=== PATIENT | female | born 1990 | race Caucasian/White ===

== ENCOUNTER → 2016-12-28 | Outpatient (CLI) | payer OTHER ==
[2016-12-28 18:46] LABS: BASO % 0.6 % (0.0-1.0); EOS # 0.1 K/mm3 (0.0-0.50); EOS % 1.5 % (0.0-3.0); LARGE UNSTAINED CELL # 0.1 K/mm3 (0.0-0.4); LARGE UNSTAINED CELL % 1.3 % (0.0-4.0); LYMPH # 2.2 K/mm3 (1.5-6.5); LYMPH % 28.9 % (24.0-44.0); MEAN CORPUSCULAR HGB CONC 34.3 g/dl (32.0-36.5); MEAN CORPUSCULAR VOLUME 93.4 fl (80.0-96.0); MONO # 0.4 K/mm3 (0.0-0.8); NEUTROPHILS # 4.6 K/mm3 (1.8-7.7); NEUTROPHILS % 61.8 % (36.0-66.0); PLATELET COUNT, AUTOMATED 248 k/mm3 (150-450); RED CELL DISTRIBUTION WIDTH 11.7 % (11.5-14.5); WHITE BLOOD COUNT 7.4 K/mm3 (4.0-10.0)
[2016-12-28 19:51] LABS: ERYTHROCYTE SEDIMENTATION RATE 4 mm/hr (0-20)
[2016-12-28 20:47] LABS: URIC ACID 3.7 MG/DL (2.6-6.0)
[2016-12-31 00:06] LABS: Lyme Disease IgG/IgM Antibodie <0.91 ISR (0.00-0.90); Lyme Disease IgM Ab Quantitati <0.80 index (0.00-0.79)
== END ==
LOC: M LAB 15:38
PROVIDERS: ATTEND Physician Assistant
DX: M25.462 Effusion, left knee (principal)

== ENCOUNTER → 2017-04-11 | Outpatient (CLI) | payer OTHER ==
[2017-04-11 17:58] LABS: ALBUMIN 4.2 GM/DL (3.2-5.2); ALBUMIN/GLOBULIN RATIO 1.35 (1.00-1.93); ALKALINE PHOSPHATASE 52 U/L (45-117); ALT/SGPT 18 U/L (12-78); ANION GAP 5 MEQ/L (8-16); AST/SGOT 14 U/L (15-37); BILIRUBIN,TOTAL 0.7 MG/DL (0.2-1.0); BLOOD UREA NITROGEN 10 MG/DL (7-18); CALCIUM LEVEL 9.1 MG/DL (8.5-10.1); CARBON DIOXIDE LEVEL 30 MEQ/L (21-32); CHLORIDE LEVEL 105 MEQ/L (98-107); CREATININE FOR GFR 0.72 MG/DL (0.55-1.02); FREE T4 0.95 NG/DL (0.76-1.46); GLOMERULAR FILTRATION RATE > 60.0 (>60); GLUCOSE, FASTING 81 MG/DL (70-105); POTASSIUM SERUM 4.5 MEQ/L (3.5-5.1); SODIUM LEVEL 140 MEQ/L (136-145); TOTAL PROTEIN 7.3 GM/DL (6.4-8.2)
[2017-04-11 18:28] LABS: FOLLICLE STIMULATING HORMONE 5.4 mIU/mL; LUTEINIZING HORMONE 5.3 mIU/mL
[2017-04-11 18:31] LABS: BASO % 0.8 % (0.0-1.0); EOS # 0.2 K/mm3 (0.0-0.50); EOS % 3.7 % (0.0-3.0); LARGE UNSTAINED CELL # 0.1 K/mm3 (0.0-0.4); LARGE UNSTAINED CELL % 1.9 % (0.0-4.0); LYMPH # 1.6 K/mm3 (1.5-6.5); LYMPH % 32.1 % (24.0-44.0); MEAN CORPUSCULAR HEMOGLOBIN 33.2 pg (27.0-33.0); MEAN CORPUSCULAR HGB CONC 35.1 g/dl (32.0-36.5); MEAN CORPUSCULAR VOLUME 94.6 fl (80.0-96.0); MONO # 0.3 K/mm3 (0.0-0.8); MONO % 4.8 % (0.0-5.0); NEUTROPHILS # 2.9 K/mm3 (1.8-7.7); NEUTROPHILS % 56.7 % (36.0-66.0); PLATELET COUNT, AUTOMATED 248 k/mm3 (150-450); RED CELL DISTRIBUTION WIDTH 11.4 % (11.5-14.5); WHITE BLOOD COUNT 5.1 K/mm3 (4.0-10.0)
== END ==
LOC: M SMT 10:55
PROVIDERS: ATTEND Physician Assistant Medical
DX: N97.9 Female infertility, unspecified (principal); Z13.0 Encounter for screening for diseases of the blood and blood-forming organs and certain disorders involving the immune mechanism; Z13.29 Encounter for screening for other suspected endocrine disorder

== ENCOUNTER → 2017-07-12 | Outpatient (CLI) | payer OTHER ==
[2017-07-12 13:28] LABS: BASO % 0.6 % (0.0-1.0); EOS # 0.1 10^3/uL (0.0-0.50); EOS % 0.7 % (0.0-3.0); IMMATURE GRANULOCYTE % 0.3 % (0-0); LYMPH # 1.3 10^3/uL (1.5-6.5); LYMPH % 18.2 % (24.0-44.0); MEAN CORPUSCULAR HEMOGLOBIN 32.3 pg (27.0-33.0); MEAN CORPUSCULAR HGB CONC 34.6 g/dl (32.0-36.5); MEAN CORPUSCULAR VOLUME 93.3 fl (80.0-96.0); MONO # 0.5 10^3/uL (0.0-0.8); MONO % 6.6 % (0.0-5.0); NEUTROPHILS # 5.2 10^3/uL (1.8-7.7); NEUTROPHILS % 73.6 % (36.0-66.0); PLATELET COUNT, AUTOMATED 220 10^3/uL (150-450); RED CELL DISTRIBUTION WIDTH 11.9 % (11.5-14.5); WHITE BLOOD COUNT 7.1 10^3/uL (4.0-10.0)
[2017-07-12 14:22] LABS: HBsAg Prenatal NEGATIVE (NEGATIVE)
== END ==
LOC: M SMT 09:44
PROVIDERS: ATTEND Advanced Practice Midwife
DX: Z34.81 Encounter for supervision of other normal pregnancy, first trimester (principal); Z3A.01 Less than 8 weeks gestation of pregnancy

== ENCOUNTER → 2017-08-11 | Outpatient (REF) | payer OTHER | LOC: M LAB REF 09:11 | PROVIDERS: ATTEND Advanced Practice Midwife | DX: R19.7 Diarrhea, unspecified (principal) ==

== ENCOUNTER → 2017-10-09 | Outpatient (CLI) | payer OTHER ==
[2017-10-09 13:58] LABS: BASO % 0.4 % (0.0-1.0); EOS # 0.1 10^3/uL (0.0-0.50); EOS % 0.9 % (0.0-3.0); HEMATOCRIT 39.4 % (36.0-47.0); HEMOGLOBIN 13.6 g/dl (12.0-16.0); IMMATURE GRANULOCYTE # 0.1 10^3/uL (0-0); IMMATURE GRANULOCYTE % 0.6 % (0-0); LYMPH # 1.3 10^3/uL (1.5-6.5); LYMPH % 15.7 % (24.0-44.0); MEAN CORPUSCULAR HEMOGLOBIN 32.7 pg (27.0-33.0); MEAN CORPUSCULAR HGB CONC 34.5 g/dl (32.0-36.5); MEAN CORPUSCULAR VOLUME 94.7 fl (80.0-96.0); MONO # 0.4 10^3/uL (0.0-0.8); MONO % 4.9 % (0.0-5.0); NEUTROPHILS # 6.3 10^3/uL (1.8-7.7); NEUTROPHILS % 77.5 % (36.0-66.0); PLATELET COUNT, AUTOMATED 207 10^3/uL (150-450); RED BLOOD COUNT 4.16 10^6/uL (4.00-5.40); RED CELL DISTRIBUTION WIDTH 12.6 % (11.5-14.5); WHITE BLOOD COUNT 8.1 10^3/uL (4.0-10.0)
[2017-10-09 14:36] LABS: SICKLE CELL SCREEN NEGATIVE (NEGATIVE)
== END ==
LOC: M SMT 09:23
DX: Z36.89 Encounter for other specified antenatal screening (principal); Z3A.18 18 weeks gestation of pregnancy
CPT/HCPCS: 85660

== ENCOUNTER → 2017-10-16 | Outpatient (CLI) | payer OTHER | LOC: M SMT 09:24 | DX: Z36.8A Encounter for antenatal screening for other genetic defects (principal) | CPT/HCPCS: 36415 ==

== ENCOUNTER → 2017-11-27 | Outpatient (CLI) | payer OTHER ==
[2017-11-27 15:41] LABS: HEMATOCRIT 35.3 % (36.0-47.0); HEMOGLOBIN 12.3 g/dl (12.0-16.0); MEAN CORPUSCULAR HEMOGLOBIN 32.6 pg (27.0-33.0); MEAN CORPUSCULAR HGB CONC 34.8 g/dl (32.0-36.5); MEAN CORPUSCULAR VOLUME 93.6 fl (80.0-96.0); PLATELET COUNT, AUTOMATED 208 10^3/uL (150-450); RED BLOOD COUNT 3.77 10^6/uL (4.00-5.40); RED CELL DISTRIBUTION WIDTH 11.9 % (11.5-14.5); WHITE BLOOD COUNT 12.6 10^3/uL (4.0-10.0)
[2017-11-27 15:59] LABS: GLUCOSE CHALLENGE TEST 1 HOUR 146 MG/DL (LESS THAN 140)
== END ==
LOC: M LAB 14:22
DX: Z34.82 Encounter for supervision of other normal pregnancy, second trimester (principal)
CPT/HCPCS: 82950

== ENCOUNTER → 2017-12-05 | Outpatient (CLI) | payer OTHER ==
[2017-12-05 07:23] LABS: GLUCOSE, FASTING 84 MG/DL (LESS THAN 95)
[2017-12-05 08:46] LABS: 1 HR GLUCOSE 209 MG/DL (LESS THAN 180)
[2017-12-05 09:38] LABS: 2 HR GLUCOSE 134 MG/DL (LESS THAN 155)
[2017-12-05 10:51] LABS: 3 HR GLUCOSE 51 MG/DL (LESS THAN 140)
== END ==
LOC: M LAB 06:40
DX: Z36.89 Encounter for other specified antenatal screening (principal); Z3A.00 Weeks of gestation of pregnancy not specified
CPT/HCPCS: 82951

== ENCOUNTER → 2017-12-13 | Outpatient (CLI) | payer OTHER | LOC: M SMT 08:34 | DX: O32.1XX0 Maternal care for breech presentation, not applicable or unspecified (principal); Z3A.29 29 weeks gestation of pregnancy ==

== ENCOUNTER 2017-12-19 19:31 | Outpatient (CLI) | payer OTHER ==
[2017-12-19 20:21] LABS: APPEARANCE, URINE CLEAR (CLEAR); BACTERIA, URINE AUTO 2+ (NEGATIVE); BILIRUBIN, URINE AUTO NEGATIVE (NEGATIVE); BLOOD, URINE BLOOD NEGATIVE (NEGATIVE); COLOR, URINE STRAW (YELLOW); GLUCOSE, URINE (UA) AUTO NEGATIVE (NEGATIVE); KETONE, URINE AUTO NEGATIVE (NEGATIVE); LEUKOCYTE ESTERASE, URINE AUTO 1+ (NEGATIVE); NITRITE, URINE AUTO NEGATIVE (NEGATIVE); PROTEIN, URINE AUTO NEGATIVE (NEGATIVE); RBC, URINE AUTO 1 /HPF (0-3); SPECIFIC GRAVITY URINE AUTO 1.005 (1.002-1.035); SQUAMOUS EPITHELIAL CELL UR AU 1 /HPF (0-6); UROBILINOGEN, URINE AUTO 0.2 mg/dL (0.0-2.0); WBC, URINE AUTO 2 /HPF (0-3)
[2017-12-19] MEDS: NITROFURANTOIN (MACROBID) 100 MG CAP PO (21:00)
== END 2017-12-19 21:00 | disposition home or self-care (01) ==
LOC: M LDO 19:31
DX: O99.89 Other specified diseases and conditions complicating pregnancy, childbirth and the puerperium (principal); Z3A.29 29 weeks gestation of pregnancy; O23.43 Unspecified infection of urinary tract in pregnancy, third trimester; Z88.5 Allergy status to narcotic agent
CPT/HCPCS: 59025

== ENCOUNTER → 2018-02-06 | Outpatient (REF) | payer OTHER | LOC: M LAB REF 13:04 | DX: Z34.83 Encounter for supervision of other normal pregnancy, third trimester (principal) | CPT/HCPCS: 87081 ==

== ENCOUNTER → 2018-02-07 | Outpatient (CLI) | payer OTHER | LOC: M RAD 15:28 | DX: O36.8130 Decreased fetal movements, third trimester, not applicable or unspecified (principal); Z3A.00 Weeks of gestation of pregnancy not specified | CPT/HCPCS: 76815 ==

== ENCOUNTER 2018-02-14 07:25 | Inpatient (IN) | payer OTHER ==
[2018-02-14 08:23] LABS: HEMATOCRIT 35.1 % (36.0-47.0); HEMOGLOBIN 11.7 g/dl (12.0-15.5); MEAN CORPUSCULAR HEMOGLOBIN 29.3 pg (27.0-33.0); MEAN CORPUSCULAR HGB CONC 33.3 g/dl (32.0-36.5); MEAN CORPUSCULAR VOLUME 87.8 fl (80.0-96.0); PLATELET COUNT, AUTOMATED 219 10^3/uL (150-450); RED CELL DISTRIBUTION WIDTH 13.3 % (11.5-14.5)
[2018-02-14] MEDS: LACTATED RINGER'S 1000 ML IV (09:03)
[2018-02-14] MEDS: LR 1,000 ML IV ×3 (09:06→15:00)
[2018-02-14] MEDS: BICITRA 30ML SOLN UDC PO (09:30)
[2018-02-14] MEDS ORDERED: MORPHINE PRES-FREE INJ 10 MG/10 ML VIAL (J2274) As Ordered (09:31)
[2018-02-14] MEDS ORDERED: NALOXONE INJ 0.4 MG/1 ML VIAL (J2310) IV ×2 (09:47)
[2018-02-14] MEDS ORDERED: METOCLOPRAMIDE INJ 10MG/2ML VIAL (J2765) IV (09:47)
[2018-02-14] MEDS ORDERED: ONDANSETRON 4MG/2ML VIAL (J2405) IV ×3 (09:47→15:00)
[2018-02-14] MEDS ORDERED: OXYTOCIN INJ 10 UNITS/ML VIAL (J2590) As Ordered ×2 (10:03)
[2018-02-14] MEDS ORDERED: KETOROLAC 60 MG/2 ML VIAL (J1885) As Ordered (10:04)
[2018-02-14] MEDS ORDERED: ONDANSETRON 4MG/2ML VIAL (J2405) As Ordered (10:04)
[2018-02-14] MEDS ORDERED: miSOPROStol 200 MCG TAB (S0191) As Ordered (10:38)
[2018-02-14] MEDS: OXYTOCIN DRIP 30 UNITS in APPROPRIATE DILUENT 1 EA IV (11:15)
[2018-02-14] MEDS: miSOPROStol 200 MCG TAB (S0191) PR (11:15)
[2018-02-14] MEDS ORDERED: MORPHINE 10 MG/ML 1ML VIAL (J2270) IV (15:00)
[2018-02-14] MEDS ORDERED: NALBUPHINE HCL 10 MG/ML AMP (J2300) IV (15:00)
[2018-02-14] MEDS ORDERED: fentaNYL 100 MCG/2 ML INJECTION (J3010) IV (15:00)
[2018-02-14] MEDS: KETOROLAC 30 MG/ML VIAL (J1885) IV ×2 (17:54→23:07)
[2018-02-14] MEDS: NALBUPHINE HCL 10 MG/ML AMP (J2300) IV (21:58)
[2018-02-15] MEDS: KETOROLAC 30 MG/ML VIAL (J1885) IV ×2 (05:25→11:23)
[2018-02-15 07:20] LABS: HEMATOCRIT 29.8 % (36.0-47.0); HEMOGLOBIN 10.1 g/dl (12.0-15.5); MEAN CORPUSCULAR HEMOGLOBIN 30.1 pg (27.0-33.0); MEAN CORPUSCULAR HGB CONC 33.9 g/dl (32.0-36.5); PLATELET COUNT, AUTOMATED 180 10^3/uL (150-450); RED BLOOD COUNT 3.35 10^6/uL (4.00-5.40); RED CELL DISTRIBUTION WIDTH 13.4 % (11.5-14.5); WHITE BLOOD COUNT 13.1 10^3/uL (4.0-10.0)
[2018-02-15] MEDS: PRENATAL VITAMINS CHEWABLE TABLET PO (09:41)
[2018-02-15] MEDS: ACETAMINOPH W/CODEINE #3 TAB UD PO ×2 (15:01→21:26)
[2018-02-15] MEDS: MOM 30ML SUSPENSION UDC PO (15:03)
[2018-02-15] MEDS: IBUPROFEN 800 MG TAB PO (19:00)
[2018-02-15] MEDS: RHOGAM 300 MCG (1500 IU) INJ (J2790) IM (19:23)
[2018-02-15] MEDS: MEASLES,MUMPS,RUBELLA VACCINE INJ (MMR-II) (90707) SC (19:24)
[2018-02-15] MEDS: DOCUSATE SODIUM 100 MG CAP PO (19:38)
[2018-02-16] MEDS: ACETAMINOPH W/CODEINE #3 TAB UD PO ×2 (01:26→09:52)
[2018-02-16] MEDS: IBUPROFEN 800 MG TAB PO (03:01)
[2018-02-16] MEDS: PRENATAL VITAMINS CHEWABLE TABLET PO (08:00)
== END 2018-02-16 10:53 | disposition home or self-care (01) | DRG 766 ==
LOC: M LDI 07:25 → M OBS 12:45
PROVIDERS: Obstetrics & Gynecology
PROC: 10D00Z1 Extraction of Products of Conception, Low, Open Approach (ICD-10-PCS; principal; 2018-02-14 09:40)
DX: O34.211 Maternal care for low transverse scar from previous cesarean delivery (principal); Z3A.37 37 weeks gestation of pregnancy; Z37.0 Single live birth; Z87.59 Personal history of other complications of pregnancy, childbirth and the puerperium

== ENCOUNTER → 2018-06-19 | Outpatient (CLI) | payer OTHER ==
[~2018-06-19] MED LIST: GASTROGRAFIN SOLUTION 30ML (Q9963) As Ordered; ISOVUE-370 76% 100ML VIAL (Q9967) As Ordered
== END ==
LOC: M RAD 16:01
DX: R93.5 Abnormal findings on diagnostic imaging of other abdominal regions, including retroperitoneum (principal)

== ENCOUNTER 2018-10-15 01:07 | Emergency (ER) | payer OTHER ==
[~2018-10-15] VITALS: Ht 162.6 cm; Wt 86.4 kg
[~2018-10-15 01:07] MED LIST changes: +ACET30TAB PO; -GASTROGRAFIN SOLUTION 30ML (Q9963) As Ordered; +IBUP1TAB7 PO; -ISOVUE-370 76% 100ML VIAL (Q9967) As Ordered; +MACR100C43 PO
[2018-10-15] MEDS ORDERED: NS 1,000 ML IV ONE (02:00)
[2018-10-15 02:25] LABS: BASO % 0.5 % (0.0-1.0); EOS # 0.1 10^3/uL (0.0-0.50); EOS % 1.5 % (0.0-3.0); HEMATOCRIT 46.7 % (36.0-47.0); HEMOGLOBIN 16.4 g/dl (12.0-15.5); LYMPH # 0.6 10^3/uL (1.5-6.5); LYMPH % 8.8 % (24.0-44.0); MEAN CORPUSCULAR HGB CONC 35.1 g/dl (32.0-36.5); MEAN CORPUSCULAR VOLUME 91.2 fl (80.0-96.0); MONO # 0.6 10^3/uL (0.0-0.8); NEUTROPHILS # 5.3 10^3/uL (1.8-7.7); PLATELET COUNT, AUTOMATED 204 10^3/uL (150-450); RED BLOOD COUNT 5.12 10^6/uL (4.00-5.40); WHITE BLOOD COUNT 6.6 10^3/uL (4.0-10.0)
[2018-10-15 02:48] LABS: BLOOD UREA NITROGEN 11 MG/DL (7-18); CALCIUM LEVEL 8.5 MG/DL (8.5-10.1); CARBON DIOXIDE LEVEL 23 MEQ/L (21-32); CHLORIDE LEVEL 110 MEQ/L (98-107); CREATININE FOR GFR 0.76 MG/DL (0.55-1.30); GLOMERULAR FILTRATION RATE > 60.0 (>60); GLUCOSE, FASTING 112 MG/DL (70-100); POTASSIUM SERUM 3.6 MEQ/L (3.5-5.1); SODIUM LEVEL 140 MEQ/L (136-145)
[2018-10-15 04:08] VITALS: BP 128/82
== END 2018-10-15 04:23 | disposition home or self-care (01) ==
LOC: M ED 01:07
DX: A08.39 Other viral enteritis (principal); R00.0 Tachycardia, unspecified; Z91.040 Latex allergy status; Z88.2 Allergy status to sulfonamides; Z88.8 Allergy status to other drugs, medicaments and biological substances